=== PATIENT | male | born 1990 | race American Indian/Alaskan Native ===

== ENCOUNTER 2017-12-30 12:10 | Emergency (ER) | payer MEDICAID ==
[2017-12-30 12:19] VITALS: BP 132/77
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
[2017-12-30] MEDS ORDERED: TYLENOL #3 PO ONE (19:15)
== END 2017-12-30 19:52 | disposition home or self-care (01) ==
LOC: ED 12:10
DX: S09.8XXA Other specified injuries of head, initial encounter (principal); M54.2 Cervicalgia; M54.6 Pain in thoracic spine; R51 Headache; F20.9 Schizophrenia, unspecified; F31.9 Bipolar disorder, unspecified; F17.210 Nicotine dependence, cigarettes, uncomplicated; W20.8XXA Other cause of strike by thrown, projected or falling object, initial encounter; Y93.89 Activity, other specified; Y92.89 Other specified places as the place of occurrence of the external cause; Y99.8 Other external cause status
CPT/HCPCS: 99282

== ENCOUNTER 2018-12-26 23:15 | Emergency (ER) | payer MEDICAID ==
[2018-12-26] MEDS ORDERED: BOOSTRIX IM ONE (23:29)
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
[2018-12-26 23:41] LABS: Basophils # (Auto) 0.1 K/mm3 (0.0-0.1); Basophils % (Auto) 1.4 % (0.0-1.8); Eosinophils # (Auto) 0.4 K/mm3 (0.0-0.4); Hematocrit 42.8 % (35.5-45.6); Hemoglobin 14.2 gm/dl (11.8-15.2); Lymphocytes # (Auto) 3.7 K/mm3 (1.2-5.4); Lymphocytes % (Auto) 35.6 % (13.4-35.0); Mean Corpuscular HGB Conc 33 % (32-34); Mean Corpuscular Volume 89 fl (84-94); Monocytes # (Auto) 0.9 K/mm3 (0.0-0.8); Monocytes % (Auto) 8.6 % (0.0-7.3); Platelet Count 401 K/mm3 (140-440); Red Blood Count 4.83 M/mm3 (3.65-5.03); Red Cell Distribution Width 13.5 % (13.2-15.2)
[2018-12-26] MEDS ORDERED: TORADOL ONE (23:42)
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
[2018-12-26] MEDS ORDERED: ANCEF/NS 1 GM/50 ML 1 GM/50 ML BAG IV ONE (23:59)
[2018-12-27 00:07] LABS: INR 0.88 (0.87-1.13)
[2018-12-27 00:36] LABS: Albumin 4.9 g/dL (3.9-5); BUN/Creatinine Ratio 11; Blood Urea Nitrogen 12 mg/dL (9-20); Calcium 9.7 mg/dL (8.4-10.2); Hemolysis Index 135
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
[2018-12-27 00:54] LABS: Alanine Aminotransferase 25 units/L (7-56)
[2018-12-27] MEDS ORDERED: ZOFRAN IV ONE (01:15)
[2018-12-27] MEDS ORDERED: MORPHINE IV ONE (01:15)
[2018-12-27] MEDS ORDERED: MORPHINE ONE (01:17)
[2018-12-27] MEDS ORDERED: ZOFRAN ONE (01:17)
[2018-12-27] MEDS ORDERED: NACL 0.9% 1000 ML 1,000 ML IV ONE (01:55)
[2018-12-27 02:51] VITALS: BP 127/78
[2018-12-27 03:40] LABS: Bilirubin,Urine NEG (Negative); Blood,Urine NEG (Negative); Color,Urine Yellow (Yellow); Mucus,Urine FEW /HPF; Protein,Urine <15 mg/dL mg/dL (Negative); Urobilinogen,Urine < 2.0 mg/dL (<2.0)
[2018-12-27 03:50] LABS: Amphetamine Screen,Urine PRESUMPTIVE NEGATIVE; Benzodiazepines Screen,Urine PRESUMPTIVE NEGATIVE; Cannabinoid Screen,Urine PRESUMPTIVE NEGATIVE; Cocaine Screen,Urine PRESUMPTIVE NEGATIVE; Methadone Screen,Urine PRESUMPTIVE NEGATIVE
[2018-12-27 04:04] LABS: Opiate Screen,Urine PRESUMPTIVE POSITIVE
== END 2018-12-27 04:00 | disposition home or self-care (01) ==
LOC: ED 23:15
DX: S09.8XXA Other specified injuries of head, initial encounter (principal); S00.81XA Abrasion of other part of head, initial encounter; S40.212A Abrasion of left shoulder, initial encounter; R55 Syncope and collapse; Z72.89 Other problems related to lifestyle; F20.9 Schizophrenia, unspecified; F31.9 Bipolar disorder, unspecified; F17.200 Nicotine dependence, unspecified, uncomplicated; X58.XXXA Exposure to other specified factors, initial encounter; Y93.89 Activity, other specified; Y99.8 Other external cause status; Y92.89 Other specified places as the place of occurrence of the external cause
CPT/HCPCS: 36415; 70450; 70486; 71045; 72125; 73030; 80053; 80307; 81001; 85025; 85610; 85730; 86850; 86900; 86901; 90471; 90715; 96365; 96375; 99284; G0480; J0690; J2270; J2405; J7030; 80320; J1885